=== PATIENT | male | born 1945 | race Caucasian/White ===

== ENCOUNTER 2017-02-25 22:00 | Inpatient (IN) | payer OTHER ==
[2017-02-25 22:15] VITALS: BMI 31.9
--- NOTE | 2017-02-25 22:29 | ED PDOC ---
Arrival/HPI - General Chief Complaint: Chest Pain Time Seen by Provider: 02/25/17 22:03 Historian: Patient, Family - History of Present Illness Narrative History of Present Illness (Text): 02/25/17 22:28 72 year old male, whose past medical history includes TX, CAD, hypertension, tuberculosis, and diabetes, who presents to the Emergency department accompanied by son complaining of chest pain today. Son states patient began complaining of mid-sternal chest pain approximately 25-30 minutes prior to arrival. Son notes patient has not seen his doctor in a while and is non- compliant with medication. Son notes that pt, has had hx. in the past of hemoptysis. Patient denies fever, chills, nausea, vomiting, diarrhea or any other complaints. Time/Duration: 24 hours Quality: Tightness Context: Home Past Medical History - Provider Review Nursing Documentation Reviewed: Yes - Cardiac Hx Hypertension: Yes - Pulmonary Hx Tuberculosis: Yes - Endocrine/Metabolic Hx Diabetes Mellitus Type 2: Yes - Psychiatric Hx Substance Use: No - Surgical History Hx Cataract Extraction: Yes - Anesthesia Hx Anesthesia: Yes Hx Anesthesia Reactions: No Hx Malignant Hyperthermia: No Family/Social History - Physician Review Nursing Documentation Reviewed: Yes Family/Social History: No Known Family HX Smoking Status: Former Smoker Hx Alcohol Use: No Hx Substance Use: No Allergies/Home Meds Allergies/Adverse Reactions: Allergies No Known Allergies Allergy (Verified 02/25/17 22:15) Home Medications: Home Meds Medication Instructions Recorded Confirmed Unobtainable 02/25/17 02/25/17 Review of Systems - Physician Review All systems were reviewed & negative as marked: Yes - Review of Systems Constitutional: Normal. absent: Fevers, Night Sweats Eyes: Normal ENT: Normal Respiratory: SOB, Cough Cardiovascular: Chest Pain Gastrointestinal: Normal. absent: Diarrhea, Nausea, Vomiting Genitourinary Male: Normal. absent: Dysuria, Frequency, Hematuria, Urinary Output Changes Musculoskeletal: Normal. absent: Back Pain, Neck Pain Skin: Normal Neurological: Normal. absent: Headache, Dizziness Physical Exam Vital Signs Reviewed: Yes Vital Signs Temp Pulse Resp BP Pulse Ox 02/26/17 02:44 67 18 98 02/26/17 01:04 64 17 148/79 97 02/26/17 00:54 63 16 166/91 H 98 02/26/17 00:36 153/97 H 02/25/17 22:57 81 177/69 H 02/25/17 22:14 98.5 F 81 16 205/96 H 99 Temperature: Afebrile Blood Pressure: Hypertensive Pulse: Regular Respiratory Rate: Normal Appearance: Positive for: Well-Appearing, Non-Toxic, Comfortable Pain Distress: None Mental Status: Positive for: Alert and Oriented X 3 - Systems Exam Head: Present: Atraumatic, Normocephalic Pupils: Present: PERRL Extroacular Muscles: Present: EOMI Conjunctiva: Present: Normal Mouth: Present: Moist Mucous Membranes Neck: Present: Normal Range of Motion Respiratory/Chest: Present: Good Air Exchange, Rhonchi. No: Respiratory Distress, Accessory Muscle Use Cardiovascular: Present: Regular Rate and Rhythm, Normal S1, S2. No: Murmurs Abdomen: Present: Normal Bowel Sounds. No: Tenderness, Distention, Peritoneal Signs Back: Present: Normal Inspection Upper Extremity: Present: Normal Inspection. No: Cyanosis, Edema Lower Extremity: Present: Other (Chronicvenous stasis to bilateral lower extremities). No: Edema Neurological: Present: GCS=15, CN II-XII Intact, Speech Normal Skin: Present: Warm, Dry, Normal Color. No: Rashes Psychiatric: Present: Alert, Oriented x 3, Normal Insight, Normal Concentration Medical Decision Making ED Course and Treatment: 02/25/17 22:28 Impression: A 72 year old patient presents to the Emergency room for chest pain. Plan: -- EKG -- Chest X ray -- Labs, BNP, cardiac enzymes -- Asprin -- Metoprolol -- Morphine -- Nitroglycerin -- Reassess and disposition Progress Notes: Reviewed EKG, NSR at [address]-segment elevations or depressions, no T-wave inversions, normal intervals. 02/26/17 00:14 Reviewed radiology, CXR shows: The cardiomediastinal silhouette is unremarkable. Increased interstitial markings are identified bilaterally, findings consistent with mild pulmonary vascular congestion. The remainder of the lungs are otherwise clear. No subdiaphragmatic free air or pneumothorax. The trachea is midline. IMPRESSION: Mild pulmonary vascular congestion, without focal infiltrate or effusion. 02/26/17 00:55 Case discussed with medical records technician cushion assembler, who is aware and agrees with plan. 02/26/17 01:[address] Monzon, who is aware and agrees with plan. Accepts pt in to hospitalist service. Pt will go to Telemetry observation for chest pain and CHF. - Lab Interpretations Lab Results: 02/25/17 22:43 02/25/17 22:43 Lab Results 02/25/17 22:43: WBC 8.4, RBC 4.55, Hgb 14.3, Hct 39.9 L, MCV 87.7, MCH 31.4, MCHC 35.8, RDW 12.8, Plt Count 254, MPV 9.8 02/25/17 22:43: Sodium 135, Potassium 4.9, Chloride 101, Carbon Dioxide 25, Anion Gap 14, BUN 26 H, Creatinine 1.0, Est GFR ( Amer) > 60, Est GFR ( Non-Af Amer) > 60, Random Glucose 331 H*, Calcium 9.4, Total Bilirubin 0.7, AST 21, ALT 30, Alkaline Phosphatase 97, Lactate Dehydrogenase 513, Total Creatine Kinase 157, Troponin I 0.04, NT-Pro-B Natriuret Pep 459 H, Total Protein 6.8, Albumin 3.7, Globulin 3.1, Albumin/Globulin Ratio 1.2 02/25/17 22:43: PT 11.3, INR 1.04, APTT 29.0 I have reviewed the lab results: Yes - RAD Interpretation Radiology Orders: 02/25/17 22:29 CHEST PORTABLE [RAD] Stat Water Chaser: Radiologist - EKG Interpretation Interpreted by ED Physician: Yes Type: 12 lead EKG - Medication Orders Current Medication Orders: Aspirin (Aspirin Chewable) 81 mg PO DAILY [facility] Atorvastatin Calcium (Lipitor) 10 mg PO DIN [facility] Famotidine (Pepcid) 20 mg PO 1000,2200 [facility] Insulin Human Lispro (Humalog Low) 0 units SC ACHS PETER PRN Reason: Protocol Lisinopril (Zestril) 10 mg PO DAILY [facility] Ondansetron HCl (Zofran Inj) 4 mg IVP Q6H PRN PRN Reason: Nausea/Vomiting Polyethylene Glycol (Miralax) 17 gm PO DAILY [facility] Discontinued Medications Acetaminophen (Tylenol 325mg Tab) 650 mg PO STAT STA Stop: 02/26/17 05:41 Last Admin: 02/26/17 05:49 Dose: 650 mg Aspirin (Aspirin) 325 mg PO ONCE STA Stop: 02/25/17 22:31 Last Admin: 02/25/17 22:57 Dose: 325 mg Furosemide (Lasix) 40 mg IVP ONCE ONE Stop: 02/26/17 00:21 Last Admin: 02/26/17 00:36 Dose: 40 mg MAR Blood Pressure Document 02/26/17 00:36 HI (Rec: 02/26/17 00:36 [id number]) Blood Pressure Blood Pressure (100/60-150/90) 153/97 IVP Administration Document 02/26/17 00:36 HI (Rec: 02/26/17 00:36 [id number]) Charges for Administration # of IVP Administrations 1 Insulin Human Regular (Humulin R) 5 units SC STAT STA Stop: 02/26/17 00:01 Last Admin: 02/26/17 00:36 Dose: 5 units MAR Blood Glucose Document 02/26/17 00:36 HI (Rec: 02/26/17 00:36 [id number]) Blood Glucose Finger Stick Blood Glucose (70-120) 336 Subcutaneous Administrations Document 02/26/17 00:36 HI (Rec: 02/26/17 00:36 [id number]) Injection Site MAR Injection Site Right Arm Charges for Administration # of Subcutaneous Administrations 1 Metoprolol Tartrate (Lopressor) 25 mg PO ONCE STA Stop: 02/25/17 22:32 Last Admin: 02/25/17 22:57 Dose: 25 mg MAR Pulse and Blood Pressure Document 02/25/17 22:57 HI (Rec: 02/25/17 22:58 [id number]) Pulse Pulse Rate (60-90) 81 Blood Pressure Blood Pressure (100/60-150/90) 177/69 Morphine Sulfate (Morphine) 2 mg IVP STAT STA Stop: 02/25/17 22:31 Last Admin: 02/25/17 22:58 Dose: 2 mg MAR Pain Assessment Document 02/25/17 22:58 HI (Rec: 02/25/17 22:58 [id number]) Pain Reassessment Is this a pain reassessment? No Sleep Is patient sleeping during reassessment? No Presence of Pain Presence of Pain Yes Location Pain Location Body Site Chest IVP Administration Document 02/25/17 22:58 HI (Rec: 02/25/17 22:58 [id number]) Charges for Administration # of IVP Administrations 1 Nitroglycerin (Nitro-Bid 2% Oint) 1 ea TOP ONCE STA Stop: 02/25/17 22:31 Last Admin: 02/25/17 22:57 Dose: 1 ea - Scribe Statement Syeda Martinez under supervision of Joycelyn Zamorano Provider Scribe Attestation: All medical record entries made by the Scribe were at my direction and personally dictated by me. I have reviewed the chart and agree that the record accurately reflects my personal performance of the history, physical exam, medical decision making, and the department course for this patient. I have also personally directed, reviewed, and agree with the discharge instructions and disposition. Disposition/Present on Arrival - Present on Arrival Any Indicators Present on Arrival: No History of DVT/PE: No History of Uncontrolled Diabetes: No Urinary Catheter: No History of Decub. Ulcer: No History Surgical Site Infection Following: None - Disposition Have Diagnosis and Disposition been Completed?: Yes Diagnosis: Chest pain, CHF (congestive heart failure) Disposition: HOSPITALIZED Disposition Time: 00:55 Patient Plan: Observation Patient Problems: Current Active Problems Problem Status Onset CHF (congestive heart failure) Acute Chest pain Acute Condition: STABLE
[2017-02-25] MEDS ORDERED: Morphine 2 mg/ml ISec IVP STA (22:30)
[2017-02-25] MEDS ORDERED: Nitroglycerin 2% Ointment Foilpak UD TOP STA (22:30)
[2017-02-25 22:57] LABS: HEMATOCRIT 39.9 % (42.0-52.0); MEAN CELL VOLUME 87.7 fl (80.0-105.0); MEAN CORPUSCULAR HEMOGLOBIN 31.4 pg (25.0-35.0); MEAN CORPUSCULAR HGB CONC 35.8 g/dl (31.0-37.0); MEAN PLATELET VOLUME 9.8 fl (7.0-11.0); RED CELL DISTRIBUTION WIDTH 12.8 % (11.5-14.5); WHITE BLOOD COUNT 8.4 10^3/ul (4.5-11.0)
[2017-02-25 23:08] LABS: INR 1.04 (0.93-1.08)
[2017-02-25 23:12] LABS: ALB/GLOB RATIO 1.2 (1.1-1.8); ALKALINE PHOSPHATASE 97 U/L (38-126); ALT/SGPT 30 U/L (7-56); AST/SGOT 21 U/L (17-59); BILIRUBIN,TOTAL 0.7 mg/dL (0.2-1.3); BLOOD UREA NITROGEN 26 mg/dL (7-21); CALCIUM 9.4 mg/dL (8.4-10.5); CARBON DIOXIDE 25 mmol/L (21-33); CHLORIDE 101 mmol/L (98-107); GFR AFRICAN-AMERICAN > 60; GLUCOSE,RANDOM 331 mg/dL (70-110); POTASSIUM 4.9 mmol/L (3.6-5.0); SODIUM 135 mmol/L (132-148); TOTAL PROTEIN 6.8 g/dL (5.8-8.3)
[2017-02-25 23:15] LABS: TROPONIN I 0.04 ng/mL
[2017-02-26] MEDS ORDERED: Insulin Regular 1 UNITS/0.01 ML ML SC STA
--- NOTE | 2017-02-26 00:07 | RAD ---
EXAM: XR Chest, 1 View CLINICAL HISTORY: 72 years old, male; Pain and signs and symptoms; Fever; Chest pain; On breathing TECHNIQUE: Frontal view of the chest. COMPARISON: No relevant prior studies available. FINDINGS: The cardiomediastinal silhouette is unremarkable. Increased interstitial markings are identified bilaterally, findings consistent with mild pulmonary vascular congestion. The remainder of the lungs are otherwise clear. No subdiaphragmatic free air or pneumothorax. The trachea is midline. IMPRESSION: Mild pulmonary vascular congestion, without focal infiltrate or effusion.
--- NOTE | 2017-02-26 01:30 | CP.PCM.HP ---
<Rebekah Jackson - Last Filed: 02/26/17 02:09> History of Present Illness - History of Present Illness History of Present Illness: Please note patient is a poor historian. 72 year old male PMHx PR 4 years ago, CAD, HTN, DM2, and TB presents with complaints of chest pain and LLE pain secondary to an open wound. Patient reports chest pain began 25-30minutes prior to arrival to ED. He reported the pain was a 10/10 in intensity non radiating to his jaw and arms bilaterally. Patient also complains of SOB with walking but when asked how many feet he was unable to quantify exactly. He denied any cough at this time but reported that for some months now he has been experiencing hemoptysis once a week. Patient denied any night sweats or weight loss. Patient also admits to nausea but no emesis and complains of chronic constipation reporting he requires milk of magnesia and has a BM every 3 days. Patient also complains of polyuria and nocturia with associated dribbling and hesitancy at times. He denies any dysuria , hematuria, and flank pain. Patient also complaints of unsteady gait, dizziness , lightheadedness when he stands too quickly and frequent falls. He reports numbness, tingling, and bilateral pain in his legs. He denied any fever, chills , headache, sore throat, palpitations, and abdominal pain. Patient was admitted at [facility] 5 years ago for TB for 2 months. Denied any recent travel and sick contacts. PMD: denies PMHx: PR 4 years ago, CAD, HTN, DM2, and TB Family History: multiple family members with DM2 Surgical History: b/l cataract surgery Allergies: NKDA Social History: used to smoke 2ppd since he was 16 years old and quit 7 years ago; denies EtOH and drug use; retired; lives at home with son who is a chief of police Medications: metformin 500mg bid which he receives from a friend Present on Admission - Present on Admission Any Indicators Present on Admission: No Review of Systems - Constitutional Constitutional: As Per HPI, Frequent Falls. absent: Chills, Fever, Headache, Weight Loss - EENT Eyes: As Per HPI. absent: Blurred Vision Ears: As Per HPI, Disequilibrium, Dizziness. absent: Tinnitus Nose/Mouth/Throat: As Per HPI. absent: Sore Throat - Cardiovascular Cardiovascular: As Per HPI, Chest Pain with Activity, Dyspnea on Exertion, Leg Ulcers. absent: Edema, Leg Edema - Respiratory Respiratory: As Per HPI, Hemoptysis, Dyspnea on Exertion. absent: Wheezing - Gastrointestinal Gastrointestinal: As Per HPI, Constipation, Nausea. absent: Abdominal Pain, Diarrhea, Vomiting - Genitourinary Genitourinary: As Per HPI, Nocturia, Urinary Frequency, Urinary Hesitance, Urinary Urgency, Voiding Freq/Small Amts. absent: Dysuria, Hematuria - Musculoskeletal Musculoskeletal: As Per HPI, Numbness, Tingling - Integumentary Integumentary: As Per HPI, Wounds (LLE) - Neurological Neurological: As Per HPI, Disequilibrium, Dizziness, Numbness, Frequent Falls, Tingling - Psychiatric Psychiatric: As Per HPI. absent: Anxiety - Endocrine Endocrine: As Per HPI, Polyuria - Hematologic/Lymphatic Hematologic: As Per HPI. absent: Easy Bleeding, Easy Bruising Past Patient History - Past Social History Smoking Status: Former Smoker - CARDIAC Hx Hypertension: Yes - PULMONARY Hx Tuberculosis: Yes - ENDOCRINE/METABOLIC Hx Diabetes Mellitus Type 2: Yes - PSYCHIATRIC Hx Substance Use: No - SURGICAL HISTORY Hx Cataract Extraction: Yes - ANESTHESIA Hx Anesthesia: Yes Hx Anesthesia Reactions: No Hx Malignant Hyperthermia: No Meds Allergies/Adverse Reactions: Allergies Allergy/AdvReac Type Severity Reaction Status Date / Time No Known Allergies Allergy Verified 02/25/17 22:15 Physical Exam - Constitutional Appears: Non-toxic, No Acute Distress - Head Exam Head Exam: ATRAUMATIC, NORMAL INSPECTION, NORMOCEPHALIC - Eye Exam Eye Exam: EOMI, Normal appearance, PERRL. absent: Conjunctival injection, Scleral icterus Pupil Exam: NORMAL ACCOMODATION - ENT Exam ENT Exam: Mucous Membranes Moist - Neck Exam Neck exam: Positive for: Full Rom, Normal Inspection - Respiratory Exam Respiratory Exam: Clear to Auscultation Bilateral, NORMAL BREATHING PATTERN. absent: Accessory Muscle Use, Rales, Rhonchi, Wheezes, Respiratory Distress - Cardiovascular Exam Cardiovascular Exam: REGULAR RHYTHM, RRR, +S1, +S2. absent: Systolic Murmur - GI/Abdominal Exam GI & Abdominal Exam: Normal Bowel Sounds, Soft. absent: Firm, Guarding, Rigid, Tenderness - Extremities Exam Extremities exam: Negative for: pedal edema Additional comments: Chronicvenous stasis to b/l LE LLE open wound - Back Exam Back exam: NORMAL INSPECTION. absent: rash noted - Neurological Exam Neurological exam: Alert, Oriented x3 - Psychiatric Exam Psychiatric exam: Normal Affect, Normal Mood - Skin Skin Exam: Dry, Warm Results - Vital Signs Recent Vital Signs: Last Vital Signs Temp 98.5 F 02/25/17 22:14 Pulse 64 02/26/17 01:04 Resp 17 02/26/17 01:04 BP 148/79 02/26/17 01:04 Pulse Ox 97 02/26/17 01:04 - Labs Result Diagrams: 02/25/17 22:43 02/25/17 22:43 Labs: Laboratory Results - last 24 hr 02/25/17 02/25/17 02/25/17 22:43 22:43 22:43 WBC 8.4 RBC 4.55 Hgb 14.3 Hct 39.9 L MCV 87.7 MCH 31.4 MCHC 35.8 RDW 12.8 Plt Count 254 MPV 9.8 PT 11.3 INR 1.04 APTT 29.0 Sodium 135 Potassium 4.9 Chloride 101 Carbon Dioxide 25 Anion Gap 14 BUN 26 H Creatinine 1.0 Est GFR ( Amer) > 60 Est GFR (Non-Af Amer) > 60 Random Glucose 331 H* Calcium 9.4 Total Bilirubin 0.7 AST 21 ALT 30 Alkaline Phosphatase 97 Lactate Dehydrogenase 513 Total Creatine Kinase 157 Troponin I 0.04 NT-Pro-B Natriuret Pep 459 H Total Protein 6.8 Albumin 3.7 Globulin 3.1 Albumin/Globulin Ratio 1.2 Assessment & Plan - Assessment and Plan (Free Text) Assessment: 72 year old male PMHx PR 4 years ago, CAD, HTN, DM2, and TB presents with complaints of chest pain and LLE pain secondary to an open wound. Plan: Chest pain r/o ACS - first troponin and EKG unremarkable f/u troponin and EKG x 2 - patient has hx of PR - ASA 81mg po qdaily - Lipitor 10mg po qhs - Lisinopril 10mg po qdaily - f/u lipid panel - f/u thyroid panel - f/u HgbA1c - f/u Echo Uncontrolled Hypertension - patient presented with BP 205/96 - Lisinopril 10mg po qdaily - Monitor Hemoptysis - patient has hx of TB - airborne isolation - f/u TB studies - f/u blood culture - ID consult: Dr. Antonio JASON wound - non healing wound likely secondary to uncontrolled DM - Podiatry consult: Dr. Ley - daily wound care Hx of DM2 - f/u HgbA1c - Accucheck - RISS low Unsteady gait - f/u orthostatics - f/u PT/OT reccs Urinary complaints - patient complaining of urinary hesitancy, dribbling, nocturia, and polyuria - f/u PSA - f/u UA and urine culture Chronic constipation - Miralax daily - Zofran 4mg ivp q6 prn nausea Diet: heart healthy moderate consistent carb GI ppx: Pepcid 20mg po bid DVT ppx: VTE ppx on hold secondary to hemoptysis and SCDs c/i secondary to LLE wound Precautions: fall risk Discussed with Dr. Nicolás Jackson PGY2 <Lydia Monzon - Last Filed: 02/26/17 03:18> Results - Vital Signs Recent Vital Signs: Last Vital Signs Temp 98.5 F 02/25/17 22:14 Pulse 67 02/26/17 02:44 Resp 18 02/26/17 02:44 BP 148/79 02/26/17 01:04 Pulse Ox 98 02/26/17 02:44 - Labs Result Diagrams: 02/25/17 22:43 02/25/17 22:43 Labs: Laboratory Results - last 24 hr 02/26/17 02:40 POC Glucose (mg/dL) 232 H Attending/Attestation - Attestation I have personally seen and examined this patient.: Yes I have fully participated in the care of the patient.: Yes I have reviewed all pertinent clinical information: Yes Notes (Text): 02/26/17 03:17 Agree with documentation and orders placed.
[2017-02-26 06:35] LABS: PH,URINE 5.5 (4.7-8.0); URINE BILIRUBIN NEGATIVE (NEGATIVE); URINE BLOOD TRACE-INTACT (NEGATIVE); URINE GLUCOSE (UA) 250 mg/dL (NEGATIVE); URINE KETONE NEGATIVE (NEGATIVE); URINE LEUKOCYTE ESTERASE NEGATIVE Leu/uL (NEGATIVE); URINE PROTEIN 100 mg/dL (<30 mg/dL); URINE UROBILINOGEN 0.2 E.U./dL (<1 E.U./dL)
[2017-02-26 06:39] LABS: BASO # 0.03 K/mm3 (0.0-2.0); BASO % 0.3 % (0.0-3.0); EOS # 0.1 (0.0-0.7); EOS % 1.5 % (1.5-5.0); GRAN # 4.77 (1.4-6.5); GRAN % 54.1 % (50.0-68.0); HEMATOCRIT 39.8 % (42.0-52.0); LYMPH # 3.1 (1.2-3.4); LYMPH % 35.6 % (22.0-35.0); MEAN CELL VOLUME 88.2 fl (80.0-105.0); MEAN CORPUSCULAR HEMOGLOBIN 30.8 pg (25.0-35.0); MEAN CORPUSCULAR HGB CONC 34.9 g/dl (31.0-37.0); MEAN PLATELET VOLUME 9.9 fl (7.0-11.0); MONO # 0.8 (0.1-0.6); MONO % 8.5 % (1.0-6.0); WHITE BLOOD COUNT 8.8 10^3/ul (4.5-11.0)
[2017-02-26 06:42] LABS: URINE APPEARANCE CLEAR (CLEAR); URINE COLOR YELLOW (YELLOW)
[2017-02-26 06:56] LABS: URINE EPITHELIAL CELLS 0 - 2 /hpf (0-5); URINE RBC 0 - 2 /hpf (0-2); URINE WBC 0 - 2 /hpf (0-6)
[2017-02-26 07:04] LABS: ALB/GLOB RATIO 1.2 (1.1-1.8); ALKALINE PHOSPHATASE 98 U/L (38-126); ALT/SGPT 30 U/L (7-56); AST/SGOT 21 U/L (17-59); BILIRUBIN,TOTAL 0.7 mg/dL (0.2-1.3); BLOOD UREA NITROGEN 26 mg/dL (7-21); CALCIUM 9.4 mg/dL (8.4-10.5); CARBON DIOXIDE 30 mmol/L (21-33); CHLORIDE 101 mmol/L (98-107); CHOLESTEROL 208 mg/dL (130-200); GFR AFRICAN-AMERICAN > 60; GLUCOSE,RANDOM 194 mg/dL (70-110); MAGNESIUM 1.8 mg/dL (1.7-2.2); POTASSIUM 4.2 mmol/L (3.6-5.0); SODIUM 137 mmol/L (132-148)
[2017-02-26 07:15] LABS: TROPONIN I 0.05 ng/mL
[2017-02-26 07:22] LABS: T4 7.6 ug/dL (5.5-11.0)
[2017-02-26 07:35] LABS: PROSTATE SPECIFIC ANTIGEN 9.1 ng/mL (0.00-2.5); THYROID STIMULATING HORMONE 2.39 mIU/mL (0.46-4.68)
[2017-02-26] MEDS: Insulin Lispro (humaLOG) LOW Coverage SC SCH ×4 (08:34→22:04)
--- NOTE | 2017-02-26 09:56 | CP.PCM.CON ---
<SaleemHarrisongeronimodorys - Last Filed: 02/26/17 13:44> History of Present Illness - History of Present Illness History of Present Illness: 72 y/o male with PMHx of DE 4 years ago, CAD, HTN, DM2, and TB seen and evaluated at bedside with Dr. Ley for chronic left anterior leg ulcer. Patient states that he has had the ulcer for a very long time. Patient states that he has had hard time healing the wound for a while. Patient denies of any recent F/N/V/C/SOB/CP today. Patient states that his legs have been discolored for a very long time. Patient denies of any other pedal complains at this time. PMHx: DE 4 years ago, CAD, HTN, DM2, and TB Surgical History: b/l cataract surgery Allergies: NKDA Social History: used to smoke 2ppd since he was 16 years old and quit 7 years ago; denies EtOH and drug use; retired; lives at home with son who is a police clerk Review of Systems - Constitutional Constitutional: As Per HPI Past Patient History - Past Social History Smoking Status: Former Smoker - CARDIAC Hx Hypertension: Yes - PULMONARY Hx Tuberculosis: Yes - NEUROLOGICAL Hx Neurological Disorder: No - HEENT Hx Cataracts: Yes - RENAL Hx Chronic Kidney Disease: No - ENDOCRINE/METABOLIC Hx Diabetes Mellitus Type 2: Yes - HEMATOLOGICAL/ONCOLOGICAL Hx Blood Disorders: No - INTEGUMENTARY Hx Dermatological Problems: No - MUSCULOSKELETAL/RHEUMATOLOGICAL Hx Falls: Yes - GASTROINTESTINAL Hx Gastrointestinal Disorders: No - GENITOURINARY/GYNECOLOGICAL Hx Genitourinary Disorders: No - PSYCHIATRIC Hx Substance Use: No - SURGICAL HISTORY Hx Cataract Extraction: Yes - ANESTHESIA Hx Anesthesia: Yes Hx Anesthesia Reactions: No Hx Malignant Hyperthermia: No Meds Allergies/Adverse Reactions: Allergies Allergy/AdvReac Type Severity Reaction Status Date / Time No Known Allergies Allergy Verified 02/25/17 22:15 - Medications Medications: Current Medications Aspirin (Aspirin Chewable) 81 mg PO DAILY [facility] Atorvastatin Calcium (Lipitor) 10 mg PO DIN [facility] Famotidine (Pepcid) 20 mg PO 1000,2200 [facility] Insulin Human Lispro (Humalog Low) 0 units SC ACHS [facility] PRN Reason: Protocol Last Admin: 02/26/17 08:34 Dose: 2 units Lisinopril (Zestril) 10 mg PO DAILY [facility] Ondansetron HCl (Zofran Inj) 4 mg IVP Q6H PRN PRN Reason: Nausea/Vomiting Polyethylene Glycol (Miralax) 17 gm PO DAILY [facility] Physical Exam - Constitutional Appears: Well, Non-toxic, No Acute Distress - Head Exam Head Exam: ATRAUMATIC - Extremities Exam Additional comments: Bilateral LE exam: VASC: DP/PT pulses are palpable 1/4 b/l, ENTER[employer]CH[employer]ECT: < 3 sec to all digits, TG: warm to cool from proximal to distal, no pitting or non-pitting edema noted DERM: Diffuse discoloration noted on the distal bilateral LE, fibrotic wound measuring approx. 1.5cm x 0.8 cm on the anterior left leg, no active drainage, no purulence, no tunneling, no undermining, no probe to bone, no foul odor, wound bed is 100% fibrotic with no surrounding hyperkeratosis, no clinical suspicion of active infection NEURO: Protective sensation grossly diminished b/l ORTHO: no pain on palpation of the wound site - Neurological Exam Neurological exam: Alert, Oriented x3 - Psychiatric Exam Psychiatric exam: Normal Affect, Normal Mood Results - Vital Signs Recent Vital Signs: Last Vital Signs Temp 98.2 F 02/26/17 07:08 Pulse 73 02/26/17 07:08 Resp 20 02/26/17 07:08 BP 146/85 02/26/17 07:08 Pulse Ox 100 02/26/17 07:08 - Labs Result Diagrams: 02/26/17 05:00 02/26/17 05:00 Labs: Laboratory Results - last 24 hr 02/26/17 02/26/17 02/26/17 02:40 05:00 05:00 WBC 8.8 RBC 4.51 Hgb 13.9 L Hct 39.8 L MCV 88.2 MCH 30.8 MCHC 34.9 RDW 13.0 Plt Count 291 MPV 9.9 Gran % 54.1 Lymph % (Auto) 35.6 H Maury % (Auto) 8.5 H Eos % (Auto) 1.5 Baso % (Auto) 0.3 Gran # 4.77 Lymph # 3.1 Maury # 0.8 H Eos # 0.1 Baso # 0.03 Sodium 137 Potassium 4.2 Chloride 101 Carbon Dioxide 30 Anion Gap 10 BUN 26 H Creatinine 1.0 Est GFR ( Amer) > 60 Est GFR (Non-Af Amer) > 60 POC Glucose (mg/dL) 232 H Random Glucose 194 H Calcium 9.4 Phosphorus 4.0 Magnesium 1.8 Total Bilirubin 0.7 AST 21 ALT 30 Alkaline Phosphatase 98 Troponin I 0.05 D Total Protein 7.0 Albumin 3.7 Globulin 3.2 Albumin/Globulin Ratio 1.2 Triglycerides 219 H Cholesterol 208 H LDL Cholesterol Direct 119 HDL Cholesterol 32 Prostate Specific Ag Thyroxine (T4) TSH 3rd Generation Urine Color Urine Appearance Urine pH Ur Specific [place] Urine Protein Urine Glucose (UA) Urine Ketones Urine Blood Urine Nitrate Urine Bilirubin Urine Urobilinogen Ur Leukocyte Esterase Urine RBC Urine WBC Ur Epithelial Cells Hyaline Casts 02/26/17 02/26/17 05:00 06:24 WBC RBC Hgb Hct MCV MCH MCHC RDW Plt Count MPV Gran % Lymph % (Auto) Maury % (Auto) Eos % (Auto) Baso % (Auto) Gran # Lymph # Maury # Eos # Baso # Sodium Potassium Chloride Carbon Dioxide Anion Gap BUN Creatinine Est GFR ( Amer) Est GFR (Non-Af Amer) POC Glucose (mg/dL) Random Glucose Calcium Phosphorus Magnesium Total Bilirubin AST ALT Alkaline Phosphatase Troponin I Total Protein Albumin Globulin Albumin/Globulin Ratio Triglycerides Cholesterol LDL Cholesterol Direct HDL Cholesterol Prostate Specific Ag 9.1 H Thyroxine (T4) 7.6 TSH 3rd Generation 2.39 Urine Color Yellow Urine Appearance Clear Urine pH 5.5 Ur Specific [place] 1.025 Urine Protein 100 H Urine Glucose (UA) 250 H Urine Ketones Negative Urine Blood Trace-intact H Urine Nitrate Negative Urine Bilirubin Negative Urine Urobilinogen 0.2 Ur Leukocyte Esterase Negative Urine RBC 0 - 2 Urine WBC 0 - 2 Ur Epithelial Cells 0 - 2 Hyaline Casts 0 - 2 Assessment & Plan - Assessment and Plan (Free Text) Assessment: 72 y/o male seen and evaluated at bedside for chronic non-healing left leg ulcer secondary to DM and hyperpigmented legs bilaterally Plan: Patient seen and evaluated at bedside with Dr. Ley Labs, vitals and charts reviewed - WBC @ 8.8, afebrile Aseptic debridement of the nails using sterile nippers Hydrocolloid dressing applied to the anterior leg ID on board Podiatry to follow patient while in house Thank you for the podiatry consult - Date & Time Date: 02/26/17 Time: 10:24 <Olya Ley - Last Filed: 03/02/17 15:28> Results - Vital Signs Recent Vital Signs: Last Vital Signs Temp 98.8 F 02/27/17 16:00 Pulse 76 02/27/17 16:00 Resp 18 02/27/17 16:00 BP 152/62 H 02/27/17 16:00 Pulse Ox 99 02/27/17 16:00 - Labs Result Diagrams: 02/26/17 05:00 02/26/17 05:00 Attending/Attestation - Attestation I have personally seen and examined this patient.: Yes I have fully participated in the care of the patient.: Yes I have reviewed all pertinent clinical information: Yes
[2017-02-26] MEDS: POLYETHYLENE GLYCOL 3350 17 GM/Dose PACKET PO SCH (10:02)
[2017-02-26] MEDS: Enoxaparin 40 mg Syringe SC SCH (12:36)
--- NOTE | 2017-02-26 12:57 | CARD ---
APPROVED REPORT EXAM: Two-dimensional and M-mode echocardiogram with Doppler and color Doppler. INDICATION Chest Pain 2D DIMENSIONS Left Atrium (2D)4.3 (1.6-4.0cm)IVSd1.4 (0.7-1.1cm) LVDd5.0 (3.9-5.9cm)PWd1.4 (0.7-1.1cm) LVDs3.6 (2.5-4.0cm)FS (%) 28.5 % LVEF (%)54.8 (>50%) M-Mode DIMENSIONS Aortic Root2.90 (2.2-3.7cm)Aortic Cusp Exc.1.20 (1.5-2.0cm) Aortic Valve AoV Peak Wttrgrxu356.0cm/Mary Ellen Peak GR.10mmHg Mitral Valve MV E Huzlauvf40.2cm/sMV A Ddqayjoe71.6cm/sE/A ratio0.8 TDI E/Lateral E'0.0E/Medial E'0.0 Tricuspid Valve TR Peak [id number]/sRAP [id number] Peak Gr.8mmHg [id number] LEFT VENTRICLE The left ventricle is normal size. There is mild concentric left ventricular hypertrophy. The left ventricular function is normal. The left ventricular ejection fraction is within the normal range. There is normal LV segmental wall motion. Transmitral Doppler flow pattern is Grade I-abnormal relaxation pattern. RIGHT VENTRICLE The right ventricle is normal size. There is normal right ventricular wall thickness. The right ventricular systolic function is normal. ATRIA The left atrium is borderline dilated. The right atrium size is normal. AORTIC VALVE The aortic valve is mildly thickened. No aortic regurgitation is present. There is no aortic valvular stenosis. MITRAL VALVE The mitral valve is normal in structure. There is no mitral valve regurgitation noted. TRICUSPID VALVE The tricuspid valve is normal in structure. There is no tricuspid valve regurgitation noted. GREAT VESSELS The aortic root is normal in size. The IVC is normal in size and collapses >50% with inspiration. PERICARDIAL EFFUSION There is a trace loculated anterior pericardial effusion. <Conclusion> The left ventricle is normal size. There is mild concentric left ventricular hypertrophy. The left ventricular function is normal. The left ventricular ejection fraction is within the normal range. There is normal LV segmental wall motion. Transmitral Doppler flow pattern is Grade I-abnormal relaxation pattern.
[2017-02-26] MEDS ORDERED: Magnesium Hydroxide Susp 30 ml UD PO PRN (13:18)
--- NOTE | 2017-02-26 14:19 | CP.PCM.PCO ---
Addendum Addendum: 02/26/17 14:13 Teofilo (patient's son was contacted at [phone]) and he stated that pt had NE >10 yrs ago and TB around 5 years ago but was treated @ [facility] and was followed up at [facility] ([address], ) in [place]. Per son, the pt fell 4 months ago and that was when he got the ulcer. Pt currently lives in son's basement. He stated that he received treatment at [facility] in the past. He also states that the patient was complaining of some chest tightness yesterday which is why he brought him into the ED. When patient was seen, he was complaining of the ulcer in his LLE (anterior jamison ) and when asked more, he also complained of chest tightness and abdominal fullness/constipation. Sis from [facility] was contacted at the above number and provided this information: patient presented w/ hemoptysis, sputum culture showed +TB, pt was provided with treatment and followup cultures were negative ( 11/2012). Treatment with Rifampin, INH, Pyrazinamide and Ethambutol were started @ [facility] on 03/12/2011 and continued as outpatient in April 2011. Pyrazinamide and Ethambutol were discontinued in the end of April 2011 and Rifampin and INH were continued until 12/09/2011. Confirmatory cultures were negative x3 in 2012. Consent for release of medical records from [facility] was signed and will be faxed today.
[2017-02-26] MEDS: levoFLOXacin 500 mg in D5W 500 MG/100 ML BAG IVPB SCH (15:46)
--- NOTE | 2017-02-26 20:37 | CON ---
DATE: CARDIOLOGY CONSULT REASON FOR CONSULTATION: Chest pain. HISTORY OF PRESENT ILLNESS: History was obtained by a japanese interpreter. The patient is a 72-year-old male, who has a history of coronary artery disease, hypertension, history of pulmonary TB that was treated some few years ago, presented because of chest discomfort in the midsternal area lasted approximately 25-30 minutes prior to his arrival to the emergency room. The patient has no recurrence of chest discomfort. The patient denies any history of heart attack in the past. The patient denies any productive cough or hemoptysis. He denies any fever or chills. He denied any recent loss of weight. PAST MEDICAL HISTORY: Hypertension, diabetes mellitus, pulmonary TB, cataract extraction. SOCIAL HISTORY: Former smoker. PHYSICAL EXAMINATION: GENERAL: The patient is an elderly male who does not appear to be in acute distress. VITAL SIGNS: Blood pressure 146/85, heart rate 73, temperature 98.2, and respirations 20. HEENT: Normocephalic. CHEST: Bilateral scattered rhonchi. HEART: S1 and S2, regular. ABDOMEN: Soft. EXTREMITIES: 1+ pitting edema. LABORATORY DATA: Hemoglobin and hematocrit 13.9 and 39.8. White count and platelet count are within normal limits. Today's SMA-7 is within normal limits except for glucose of 194 and BUN of 26. Two sets of troponins are 0.04 and 0.05. Triglyceride is elevated 219. LDL, cholesterol is elevated at 208. TSH is within normal limit. PT, PTT and INR are within normal limit. EKG revealed normal sinus rhythm. Chest x-ray revealed bilateral rhonchi and alveolar infiltrate more prominent in both hilar areas. ASSESSMENT: 1. Chest pain, rule out myocardial infarction. 2. History of pulmonary tuberculosis, rule out reactivation. 3. Uncontrolled diabetes mellitus. 4. Hypertension and hyperlipidemia. CONDITIONS: Continue aspirin 81 mg once daily, Lipitor 10 mg once a day, Zestril 10 mg once a day, start subcutaneous Lovenox at 40 mg once a day. I will review the echocardiographic study performed today. Moe Robb MD
--- NOTE | 2017-02-26 22:09 | CARD ---
APPROVED REPORT EKG Measurement Heart [id number] <Conclusion> Normal sinus rhythm Normal ECG
--- NOTE | 2017-02-26 23:30 | CP.PCM.CON ---
History of Present Illness - History of Present Illness History of Present Illness: Infectious Disease Consultation: February 26, 2017 72 yo male with history of tuberculosis over 5 years ago who had treatment initiated at [facility] at that time. He was followed through by the [facility]. Patient himself is a very poor historian. Notes reviewed at [facility] verifying initiation of treatment in February 2011. The patient was initially brought to [facility] for chest pain and LLE pain. PMHx: OR 4 years ago, CAD, HTN, DM, TB treated 4 years ago (active disease) PSHx: bilateral cataract surgery Allergies: NKDA Social Hx: Ex-smoker 2ppd for over 50 years, No EtOH, No illicit drug use. Retired police clerk. Active Medications Acetaminophen (Tylenol 325mg Tab) 650 mg PO Q6H PRN PRN Reason: Headache Aspirin (Aspirin Chewable) 81 mg PO DAILY [facility] Last Admin: 02/26/17 10:01 Dose: 81 mg Atorvastatin Calcium (Lipitor) 10 mg PO DIN [facility] Last Admin: 02/26/17 17:17 Dose: 10 mg Docusate Sodium (Colace) 100 mg PO BID [facility] Last Admin: 02/26/17 17:17 Dose: 100 mg Enoxaparin Sodium (Lovenox) 40 mg SC DAILY [facility] PRN Reason: Protocol Last Admin: 02/26/17 12:36 Dose: 40 mg Famotidine (Pepcid) 20 mg PO 1000,2200 [facility] Last Admin: 02/26/17 22:07 Dose: 20 mg Levofloxacin/Dextrose (Levaquin 500mg) 500 mg in 100 mls @ 100 mls/hr IVPB DAILY [facility] Last Admin: 02/26/17 15:46 Dose: 100 mls/hr Insulin Human Lispro (Humalog Low) 0 units SC ACHS [facility] PRN Reason: Protocol Last Admin: 02/26/17 22:04 Dose: Not Given Lisinopril (Zestril) 10 mg PO DAILY [facility] Last Admin: 02/26/17 10:01 Dose: 10 mg Magnesium Hydroxide (Milk Of Magnesia) 30 ml PO DAILY PRN PRN Reason: Constipation Last Admin: 02/26/17 13:36 Dose: 30 ml Ondansetron HCl (Zofran Inj) 4 mg IVP Q6H PRN PRN Reason: Nausea/Vomiting Polyethylene Glycol (Miralax) 17 gm PO DAILY [facility] Last Admin: 02/26/17 10:02 Dose: 17 gm Family Hx: DM in multiple family members ROS: Chest pain and lower left leg pain. Radiation of chest pain to jaw and bilateral arms. No abdominal pain, melena, hematuria, hematemesis, hematochezia, depression, anxiety, diarrhea, SOB, cough Past Patient History - Past Social History Smoking Status: Former Smoker - CARDIAC Hx Hypertension: Yes - PULMONARY Hx Tuberculosis: Yes - NEUROLOGICAL Hx Neurological Disorder: No - HEENT Hx Cataracts: Yes - RENAL Hx Chronic Kidney Disease: No - ENDOCRINE/METABOLIC Hx Diabetes Mellitus Type 2: Yes - HEMATOLOGICAL/ONCOLOGICAL Hx Blood Disorders: No - INTEGUMENTARY Hx Dermatological Problems: No - MUSCULOSKELETAL/RHEUMATOLOGICAL Hx Falls: Yes - GASTROINTESTINAL Hx Gastrointestinal Disorders: No - GENITOURINARY/GYNECOLOGICAL Hx Genitourinary Disorders: No - PSYCHIATRIC Hx Substance Use: No - SURGICAL HISTORY Hx Cataract Extraction: Yes - ANESTHESIA Hx Anesthesia: Yes Hx Anesthesia Reactions: No Hx Malignant Hyperthermia: No Meds Allergies/Adverse Reactions: Allergies Allergy/AdvReac Type Severity Reaction Status Date / Time No Known Allergies Allergy Verified 02/25/17 22:15 - Medications Medications: Current Medications Acetaminophen (Tylenol 325mg Tab) 650 mg PO Q6H PRN PRN Reason: Headache Aspirin (Aspirin Chewable) 81 mg PO DAILY [facility] Last Admin: 02/26/17 10:01 Dose: 81 mg Atorvastatin Calcium (Lipitor) 10 mg PO DIN [facility] Last Admin: 02/26/17 17:17 Dose: 10 mg Docusate Sodium (Colace) 100 mg PO BID [facility] Last Admin: 02/26/17 17:17 Dose: 100 mg Enoxaparin Sodium (Lovenox) 40 mg SC DAILY [facility] PRN Reason: Protocol Last Admin: 02/26/17 12:36 Dose: 40 mg Famotidine (Pepcid) 20 mg PO 1000,2200 [facility] Last Admin: 02/26/17 22:07 Dose: 20 mg Levofloxacin/Dextrose (Levaquin 500mg) 500 mg in 100 mls @ 100 mls/hr IVPB DAILY [facility] Last Admin: 02/26/17 15:46 Dose: 100 mls/hr Insulin Human Lispro (Humalog Low) 0 units SC ACHS [facility] PRN Reason: Protocol Last Admin: 02/26/17 22:04 Dose: Not Given Lisinopril (Zestril) 10 mg PO DAILY [facility] Last Admin: 02/26/17 10:01 Dose: 10 mg Magnesium Hydroxide (Milk Of Magnesia) 30 ml PO DAILY PRN PRN Reason: Constipation Last Admin: 02/26/17 13:36 Dose: 30 ml Ondansetron HCl (Zofran Inj) 4 mg IVP Q6H PRN PRN Reason: Nausea/Vomiting Polyethylene Glycol (Miralax) 17 gm PO DAILY [facility] Last Admin: 02/26/17 10:02 Dose: 17 gm Physical Exam - Constitutional Appears: Non-toxic, No Acute Distress, Chronically Ill - Head Exam Head Exam: ATRAUMATIC, NORMOCEPHALIC - Eye Exam Eye Exam: EOMI, PERRL Pupil Exam: NORMAL ACCOMODATION, PERRL - ENT Exam ENT Exam: Mucous Membranes Moist, Normal External Ear Exam, TM's Normal Bilaterally - Neck Exam Neck exam: Positive for: Full Rom, Normal Inspection - Respiratory Exam Respiratory Exam: Clear to Auscultation Bilateral, NORMAL BREATHING PATTERN. absent: Rales, Rhonchi, Wheezes - Cardiovascular Exam Cardiovascular Exam: REGULAR RHYTHM, RRR, +S1, +S2 - GI/Abdominal Exam GI & Abdominal Exam: Normal Bowel Sounds, Soft. absent: Distended, Tenderness - Extremities Exam Additional comments: Chronic venous stasis of the legs bilaterally. Anterior left leg ulceration with fibrosis. - Neurological Exam Neurological exam: Alert, CN II-XII Intact, Oriented x3 - Psychiatric Exam Psychiatric exam: Normal Affect, Normal Mood - Skin Skin Exam: Intact, Normal Color Results - Vital Signs Recent Vital Signs: Last Vital Signs Temp 98.9 F 02/26/17 21:30 Pulse 80 02/26/17 21:30 Resp 20 02/26/17 21:30 BP 168/89 H 02/26/17 21:30 Pulse Ox 97 02/26/17 21:30 - Labs Result Diagrams: 02/26/17 05:00 02/26/17 05:00 Labs: Laboratory Results - last 24 hr 02/26/17 02/26/17 02/26/17 02:40 05:00 05:00 WBC 8.8 RBC 4.51 Hgb 13.9 L Hct 39.8 L MCV 88.2 MCH 30.8 MCHC 34.9 RDW 13.0 Plt Count 291 MPV 9.9 Gran % 54.1 Lymph % (Auto) 35.6 H [facility] % (Auto) 8.5 H Eos % (Auto) 1.5 Baso % (Auto) 0.3 Gran # 4.77 Lymph # 3.1 [facility] # 0.8 H Eos # 0.1 Baso # 0.03 Sodium 137 Potassium 4.2 Chloride 101 Carbon Dioxide 30 Anion Gap 10 BUN 26 H Creatinine 1.0 Est GFR ( Amer) > 60 Est GFR (Non-Af Amer) > 60 POC Glucose (mg/dL) 232 H Random Glucose 194 H Hemoglobin A1c Calcium 9.4 Phosphorus 4.0 Magnesium 1.8 Total Bilirubin 0.7 AST 21 ALT 30 Alkaline Phosphatase 98 Troponin I 0.05 D Total Protein 7.0 Albumin 3.7 Globulin 3.2 Albumin/Globulin Ratio 1.2 Triglycerides 219 H Cholesterol 208 H LDL Cholesterol Direct 119 HDL Cholesterol 32 Prostate Specific Ag Thyroxine (T4) TSH 3rd Generation Urine Color Urine Appearance Urine pH Ur Specific Bascom Urine Protein Urine Glucose (UA) Urine Ketones Urine Blood Urine Nitrate Urine Bilirubin Urine Urobilinogen Ur Leukocyte Esterase Urine RBC Urine WBC Ur Epithelial Cells Hyaline Casts 02/26/17 02/26/17 02/26/17 05:00 05:00 06:24 WBC RBC Hgb Hct MCV MCH MCHC RDW Plt Count MPV Gran % Lymph % (Auto) [facility] % (Auto) Eos % (Auto) Baso % (Auto) Gran # Lymph # [facility] # Eos # Baso # Sodium Potassium Chloride Carbon Dioxide Anion Gap BUN Creatinine Est GFR ( Amer) Est GFR (Non-Af Amer) POC Glucose (mg/dL) Random Glucose Hemoglobin A1c 12.4 H Calcium Phosphorus Magnesium Total Bilirubin AST ALT Alkaline Phosphatase Troponin I Total Protein Albumin Globulin Albumin/Globulin Ratio Triglycerides Cholesterol LDL Cholesterol Direct HDL Cholesterol Prostate Specific Ag 9.1 H Thyroxine (T4) 7.6 TSH 3rd Generation 2.39 Urine Color Yellow Urine Appearance Clear Urine pH 5.5 Ur Specific Bascom 1.025 Urine Protein 100 H Urine Glucose (UA) 250 H Urine Ketones Negative Urine Blood Trace-intact H Urine Nitrate Negative Urine Bilirubin Negative Urine Urobilinogen 0.2 Ur Leukocyte Esterase Negative Urine RBC 0 - 2 Urine WBC 0 - 2 Ur Epithelial Cells 0 - 2 Hyaline Casts 0 - 2 02/26/17 02/26/17 07:47 11:28 WBC RBC Hgb Hct MCV MCH MCHC RDW Plt Count MPV Gran % Lymph % (Auto) [facility] % (Auto) Eos % (Auto) Baso % (Auto) Gran # Lymph # [facility] # Eos # Baso # Sodium Potassium Chloride Carbon Dioxide Anion Gap BUN Creatinine Est GFR ( Amer) Est GFR (Non-Af Amer) POC Glucose (mg/dL) 215 H 310 H Random Glucose Hemoglobin A1c Calcium Phosphorus Magnesium Total Bilirubin AST ALT Alkaline Phosphatase Troponin I Total Protein Albumin Globulin Albumin/Globulin Ratio Triglycerides Cholesterol LDL Cholesterol Direct HDL Cholesterol Prostate Specific Ag Thyroxine (T4) TSH 3rd Generation Urine Color Urine Appearance Urine pH Ur Specific Bascom Urine Protein Urine Glucose (UA) Urine Ketones Urine Blood Urine Nitrate Urine Bilirubin Urine Urobilinogen Ur Leukocyte Esterase Urine RBC Urine WBC Ur Epithelial Cells Hyaline Casts Assessment & Plan - Assessment and Plan (Free Text) Assessment: 72 yo male with history of active TB who completed treatment about 5 years ago. The patient has a non-healing left leg ulceration with sign of chronic venous stasis. Noted that the patient is on Levaquin for antibiotic treatment. No need for further TB treatment at this time. Noted hemoptysis was part of the presenting complaints. Chest X-ray did not show infiltrate. Obtain sputum cultures. No need for Quantiferon or PPD as the patient has a known history of active TB with treatment. Local wound care as per podiatry. More likely Pharyngitis. Await sputum cultures. Can check for Acid-Fast stains of the sputum to r/o out TB but unlikely diagnosis. Thank you for allowing me to participate in the care of the patient, we will follow with you.
[2017-02-27] MEDS: Insulin Lispro (humaLOG) LOW Coverage SC SCH ×3 (09:10→17:49)
[2017-02-27] MEDS: levoFLOXacin 500 mg in D5W 500 MG/100 ML BAG IVPB SCH (09:59)
[2017-02-27] MEDS: POLYETHYLENE GLYCOL 3350 17 GM/Dose PACKET PO SCH ×2 (10:00→17:02)
[2017-02-27] MEDS: Enoxaparin 40 mg Syringe SC SCH (10:00)
--- NOTE | 2017-02-27 13:49 | CP.PCM.PN ---
<Mikey Austin - Last Filed: 02/27/17 13:46> Subjective - Date & Time of Evaluation Date of Evaluation: 02/27/17 Time of Evaluation: 10:46 - Subjective Subjective: patient was seen and examined bedside. it was explained to him that his cardiac workup has been negative so far, and he stated that he was feeling much better than the day prior. he denies hemoptysis, cough, shortness of breath, chest pain , weakness, abdominal pain, fevers/chills, n/v/d, constipation. Objective - Vital Signs/Intake and Output Vital Signs (last 24 hours): Temp Pulse Resp BP Pulse Ox 99.2 F 74 20 138/81 98 02/27/17 06:00 02/27/17 09:59 02/27/17 06:00 02/27/17 09:59 02/27/17 06:00 Intake and Output: 02/27/17 02/27/17 06:59 18:59 Intake Total 120 Balance 120 - Medications Medications: Current Medications Acetaminophen (Tylenol 325mg Tab) 650 mg PO Q6H PRN PRN Reason: Headache Aspirin (Aspirin Chewable) 81 mg PO DAILY [facility] Last Admin: 02/27/17 09:58 Dose: 81 mg Atorvastatin Calcium (Lipitor) 10 mg PO DIN [facility] Last Admin: 02/26/17 17:17 Dose: 10 mg Docusate Sodium (Colace) 100 mg PO BID [facility] Last Admin: 02/27/17 09:59 Dose: 100 mg Enoxaparin Sodium (Lovenox) 40 mg SC DAILY [facility] PRN Reason: Protocol Last Admin: 02/27/17 10:00 Dose: 40 mg Famotidine (Pepcid) 20 mg PO 1000,2200 [facility] Last Admin: 02/27/17 09:58 Dose: 20 mg Levofloxacin/Dextrose (Levaquin 500mg) 500 mg in 100 mls @ 100 mls/hr IVPB DAILY [facility] Last Admin: 02/27/17 09:59 Dose: 100 mls/hr Insulin Human Lispro (Humalog Low) 0 units SC ACHS [facility] PRN Reason: Protocol Last Admin: 02/27/17 12:56 Dose: 2 units Lisinopril (Zestril) 10 mg PO DAILY [facility] Last Admin: 02/27/17 09:59 Dose: 10 mg Magnesium Hydroxide (Milk Of Magnesia) 30 ml PO DAILY PRN PRN Reason: Constipation Last Admin: 02/26/17 13:36 Dose: 30 ml Metformin HCl (Glucophage) 1,000 mg PO BID [facility] Last Admin: 02/27/17 09:59 Dose: 1,000 mg Ondansetron HCl (Zofran Inj) 4 mg IVP Q6H PRN PRN Reason: Nausea/Vomiting Polyethylene Glycol (Miralax) 17 gm PO DAILY [facility] Last Admin: 02/27/17 10:00 Dose: 17 gm - Labs Labs: 02/26/17 05:00 02/26/17 05:00 PT 11.3 SECONDS (9.4-12.5) 02/25/17 22:43 INR 1.04 (0.93-1.08) 02/25/17 22:43 APTT 29.0 Seconds (25.1-36.5) 02/25/17 22:43 - Constitutional Appears: Well, Non-toxic, No Acute Distress - Head Exam Head Exam: ATRAUMATIC, NORMAL INSPECTION, NORMOCEPHALIC - Eye Exam Eye Exam: EOMI, Normal appearance, PERRL Pupil Exam: NORMAL ACCOMODATION - ENT Exam ENT Exam: Mucous Membranes Moist, Normal Exam - Neck Exam Neck Exam: Normal Inspection - Respiratory Exam Respiratory Exam: Clear to Ausculation Bilateral, NORMAL BREATHING PATTERN. absent: Rales, Rhonchi, Wheezes - Cardiovascular Exam Cardiovascular Exam: RRR, +S1, +S2. absent: Gallop, Rubs, Murmur - GI/Abdominal Exam GI & Abdominal Exam: Soft, Normal Bowel Sounds. absent: Distended, Tenderness - Extremities Exam Additional comments: L anterior jamison ulcer with surrounding erythema - Back Exam Back Exam: NORMAL INSPECTION - Neurological Exam Neurological Exam: Alert, Awake, Oriented x3 - Psychiatric Exam Psychiatric exam: Normal Affect, Normal Mood - Skin Skin Exam: Dry, Normal Color, Warm Assessment and Plan - Assessment and Plan (Free Text) Assessment: 72 year old male PMH MD 4 years ago, CAD, HTN, uncontrolled DM2, and TB (post- treatment with confirmed negative cultures in 2012) presents with complaints of chest pain and LLE pain secondary to an open wound. Plan: 1. Chest pain r/o ACS vs bronchitis - Troponin I negative x2 - EKG was unremarkable - Echo showed EF 55%, mild concentric LVH - ASA 81mg po daily - Cardiology consulted, rec ASA 81, Lipitor 10, Zestril 10, Lovenox 40mg SC 2. LLE ulcer - non healing wound likely secondary to uncontrolled DM - Podiatry consulted, recs appreciated - daily wound care provided by podiatry team - bacitracin ointment daily 3. Hemoptysis, resolved - pt has not had episode of hemoptysis since he's been in the hospital, and subjective history is unclear - patient has hx of treated TB (post 1yr of treatments) and confirmed negative cultures in 2012 - cont airborne isolation until at least 1 culture is negative (which will take likely 24 more hours) - ID consult, suggest that TB is unlikely, and more likely pharyngitis - cont Levaquin d2 4. Hx of uncontrolled DM2 - likely 2/2 poor compliance with medication - A1C 12.4 - Metformin 1000mg BID (home dose that pt states that he takes) - [facility] was contacted ([phone] ext [phone]) and confirmed that last time prescriptions were filled was in 2014 and were Metformin 1000mg BID, Glipizide 5mg daily, Lisinopril 10mg daily, and Amlodipine 10mg daily - ISS - Accucheck ACHS 5. Hypertension, improved - cont Lisinopril 10mg po daily - cont to monitor 6. HLD - cont Lipitor 10mg 7. Urinary complaints likely due to BPH - patient complaining of urinary hesitancy, dribbling - Urine and Blood cultures negative - will start flomax 8. Chronic constipation - Miralax daily, Milk of Mag PRN - Zofran 4mg ivp q6 prn nausea Pepcid/Lovenox HHD Patient was seen, examined and discussed with attending, Dr. Teagan Austin PGY1 <Gaviota Candelaria - Last Filed: 02/27/17 16:59> Objective - Vital Signs/Intake and Output Vital Signs (last 24 hours): Temp Pulse Resp BP Pulse Ox 99.2 F 83 20 138/81 98 02/27/17 06:00 02/27/17 10:00 02/27/17 06:00 02/27/17 09:59 02/27/17 06:00 - Medications Medications: Current Medications Acetaminophen (Tylenol 325mg Tab) 650 mg PO Q6H PRN PRN Reason: Headache Aspirin (Aspirin Chewable) 81 mg PO DAILY [facility] Last Admin: 02/27/17 09:58 Dose: 81 mg Atorvastatin Calcium (Lipitor) 10 mg PO DIN [facility] Last Admin: 02/26/17 17:17 Dose: 10 mg Bacitracin (Bacitracin) 0 gm TOP DAILY [facility] Docusate Sodium (Colace) 100 mg PO BID [facility] Last Admin: 02/27/17 09:59 Dose: 100 mg Enoxaparin Sodium (Lovenox) 40 mg SC DAILY [facility] PRN Reason: Protocol Last Admin: 02/27/17 10:00 Dose: 40 mg Famotidine (Pepcid) 20 mg PO 1000,2200 [facility] Last Admin: 02/27/17 09:58 Dose: 20 mg Levofloxacin/Dextrose (Levaquin 500mg) 500 mg in 100 mls @ 100 mls/hr IVPB DAILY [facility] Last Admin: 02/27/17 09:59 Dose: 100 mls/hr Insulin Human Lispro (Humalog Low) 0 units SC ACHS [facility] PRN Reason: Protocol Last Admin: 02/27/17 12:56 Dose: 2 units Lisinopril (Zestril) 10 mg PO DAILY [facility] Last Admin: 02/27/17 09:59 Dose: 10 mg Magnesium Hydroxide (Milk Of Magnesia) 30 ml PO DAILY PRN PRN Reason: Constipation Last Admin: 02/26/17 13:36 Dose: 30 ml Metformin HCl (Glucophage) 1,000 mg PO BID [facility] Last Admin: 02/27/17 09:59 Dose: 1,000 mg Ondansetron HCl (Zofran Inj) 4 mg IVP Q6H PRN PRN Reason: Nausea/Vomiting Polyethylene Glycol (Miralax) 17 gm PO DAILY [facility] Last Admin: 02/27/17 10:00 Dose: 17 gm - Labs Labs: PT 11.3 SECONDS (9.4-12.5) 02/25/17 22:43 INR 1.04 (0.93-1.08) 02/25/17 22:43 APTT 29.0 Seconds (25.1-36.5) 02/25/17 22:43 Attending/Attestation - Attestation I have personally seen and examined this patient.: Yes I have fully participated in the care of the patient.: Yes I have reviewed all pertinent clinical information, including history, physical exam and plan: Yes Notes (Text): 02/27/17 16:57 Attending note; Patient seen and examined with resident. Patient is a 72-year-old male admitted with chest discomfort and mild hemoptysis. Patient with a past medical history of diabetes, tuberculosis treated last year , noncompliance with follow-up. Cardiac enzymes negative. Echocardiogram normal. Cardiology evaluation appreciated. AFB 1 ordered since the patient complained of hemoptysis 1. Currently no episodes. Hemoglobin is stable. Mostly secondary to bronchitis. ID evaluation appreciated. We will discontinue isolation once AFB is negative. Continue levofloxacin. Diabetes; hemoglobin A1c is 12. Noncompliance with follow-up. Started on metformin. The diagnosis and treatment options discussed with patient's son in detail. Possible discharge home tomorrow if AFB negative. Upon discharge the patient will follow-up with [facility] clinic.
--- NOTE | 2017-02-27 15:11 | PN ---
DATE: 02/27/2017 SUBJECTIVE: A 72-year-old male seen at bedside for continued evaluation and management of a chronic diabetic left anterior lower leg ulcer. The patient denies any pain and has been afebrile. OBJECTIVE: VITAL SIGNS: Revealed temperature of 99.2, pulse rate of 74, blood pressure of 138/81, and respiratory rate of 20. EXTREMITIES: Palpable pedal pulses noted bilaterally. Temporally filling time is within normal limits bilaterally. There is noted to be +2 nonpitting lower extremity edema noted bilaterally. There is a full-thickness ulceration on the left anterior lower leg that measures approximately 1.5 x 1.0 x 0.2 cm. The base of the ulcer is primarily fibrotic with no granulation tissue present. There is no purulence. There is no foul odor. The wound does not probe to tendon or bone. There is no purulence to suggest underlying abscess formation. Protective sensation diminished using 5.07 g monofilament wire testing bilaterally. LABORATORY DATA: Reveals white count of 8.8, hemoglobin of 13.9, hematocrit of 39.8, and platelet count 291. Microbiology report of the left leg reveals gram negative rods. ASSESSMENT: Full-thickness chronic nonhealing anterior left lower leg ulceration secondary to long-standing diabetes. PLAN: The patient was seen and evaluated. The wound was cleansed with normal sterile saline. We will apply Bactroban and a dry sterile dressing daily. Dr. Alvarez's note was read and appreciated. We will continue with IV antibiotics as per infectious disease. The patient will be seen and followed daily. Darryl Bourne DPM
--- NOTE | 2017-02-27 17:46 | CP.PCM.PN ---
Subjective - Date & Time of Evaluation Date of Evaluation: 02/27/17 Time of Evaluation: 15:30 - Subjective Subjective: Infectious Disease Follow Up: February 27, 2017 72 yo male with history of tuberculosis over 5 years ago who had treatment initiated at [facility] at that time. He was followed through by the [facility]. Patient himself is a very poor historian. Notes reviewed at [facility] verifying initiation of treatment in February 2011. The patient was initially brought to [facility] for chest pain and LLE pain. Patient feeling much better now. Objective - Vital Signs/Intake and Output Vital Signs (last 24 hours): Temp Pulse Resp BP Pulse Ox 99.2 F 83 20 138/81 98 02/27/17 06:00 02/27/17 10:00 02/27/17 06:00 02/27/17 09:59 02/27/17 06:00 - Medications Medications: Current Medications Acetaminophen (Tylenol 325mg Tab) 650 mg PO Q6H PRN PRN Reason: Headache Aspirin (Aspirin Chewable) 81 mg PO DAILY [facility] Last Admin: 02/27/17 09:58 Dose: 81 mg Atorvastatin Calcium (Lipitor) 10 mg PO DIN [facility] Last Admin: 02/26/17 17:17 Dose: 10 mg Bacitracin (Bacitracin) 0 gm TOP DAILY [facility] Docusate Sodium (Colace) 100 mg PO BID [facility] Last Admin: 02/27/17 09:59 Dose: 100 mg Enoxaparin Sodium (Lovenox) 40 mg SC DAILY [facility] PRN Reason: Protocol Last Admin: 02/27/17 10:00 Dose: 40 mg Famotidine (Pepcid) 20 mg PO 1000,2200 [facility] Last Admin: 02/27/17 09:58 Dose: 20 mg Levofloxacin/Dextrose (Levaquin 500mg) 500 mg in 100 mls @ 100 mls/hr IVPB DAILY [facility] Last Admin: 02/27/17 09:59 Dose: 100 mls/hr Insulin Human Lispro (Humalog Low) 0 units SC ACHS [facility] PRN Reason: Protocol Last Admin: 02/27/17 12:56 Dose: 2 units Lisinopril (Zestril) 10 mg PO DAILY [facility] Last Admin: 02/27/17 09:59 Dose: 10 mg Magnesium Hydroxide (Milk Of Magnesia) 30 ml PO DAILY PRN PRN Reason: Constipation Last Admin: 02/26/17 13:36 Dose: 30 ml Metformin HCl (Glucophage) 1,000 mg PO BID [facility] Last Admin: 02/27/17 09:59 Dose: 1,000 mg Ondansetron HCl (Zofran Inj) 4 mg IVP Q6H PRN PRN Reason: Nausea/Vomiting Polyethylene Glycol (Miralax) 17 gm PO DAILY [facility] Last Admin: 02/27/17 17:02 Dose: Not Given - Labs Labs: PT 11.3 SECONDS (9.4-12.5) 02/25/17 22:43 INR 1.04 (0.93-1.08) 02/25/17 22:43 APTT 29.0 Seconds (25.1-36.5) 02/25/17 22:43 - Constitutional Appears: Non-toxic, No Acute Distress, Chronically Ill - Head Exam Head Exam: ATRAUMATIC, NORMOCEPHALIC - Eye Exam Eye Exam: EOMI, PERRL Pupil Exam: NORMAL ACCOMODATION, PERRL - ENT Exam ENT Exam: Mucous Membranes Moist, Normal External Ear Exam, TM's Normal Bilaterally - Neck Exam Neck Exam: Full ROM, Normal Inspection - Respiratory Exam Respiratory Exam: Clear to Ausculation Bilateral, NORMAL BREATHING PATTERN. absent: Rales, Rhonchi, Wheezes - Cardiovascular Exam Cardiovascular Exam: REGULAR RHYTHM, RRR, +S1, +S2 - GI/Abdominal Exam GI & Abdominal Exam: Soft, Normal Bowel Sounds. absent: Distended, Tenderness - Extremities Exam Additional comments: Chronic venous stasis of the legs bilaterally. Anterior left leg ulceration with fibrosis. - Neurological Exam Neurological Exam: Alert, CN II-XII Intact, Oriented x3 - Psychiatric Exam Psychiatric exam: Normal Affect, Normal Mood - Skin Skin Exam: Intact, Normal Color Assessment and Plan - Assessment and Plan (Free Text) Assessment: 72 yo male with history of active TB who completed treatment about 5 years ago. The patient has a non-healing left leg ulceration with sign of chronic venous stasis. Noted that the patient is on Levaquin for antibiotic treatment. No need for further TB treatment at this time. Noted hemoptysis was part of the presenting complaints. Chest X-ray did not show infiltrate. Obtain sputum cultures. No need for Quantiferon or PPD as the patient has a known history of active TB with treatment. Local wound care as per podiatry. More likely Pharyngitis. Await sputum cultures. Can check for Acid-Fast stains of the sputum to r/o out TB but unlikely diagnosis. One acid-fast stain is negative so far. Thank you for allowing me to participate in the care of the patient, we will follow with you.
[2017-02-27 17:51] VITALS: BP 152/62; PULSE 76; RESP 18; TEMP 98.8; O2SAT 99
--- NOTE | 2017-02-27 19:32 | CP.PCM.DIS ---
<Mikey Austin - Last Filed: 02/27/17 19:18> Provider - Provider Date of Admission: 02/27/17 13:47 Attending physician: Gaviota Candelaria MD Time Spent in preparation of Discharge (in minutes): 45 Hospital Course - Lab Results Lab Results: Most Recent Lab Values WBC 8.8 10^3/ul (4.5-11.0) 02/26/17 05:00 RBC 4.51 10^6/uL (3.5-6.1) 02/26/17 05:00 Hgb 13.9 g/dL (14.0-18.0) L 02/26/17 05:00 Hct 39.8 % (42.0-52.0) L 02/26/17 05:00 MCV 88.2 fl (80.0-105.0) 02/26/17 05:00 MCH 30.8 pg (25.0-35.0) 02/26/17 05:00 MCHC 34.9 g/dl (31.0-37.0) 02/26/17 05:00 RDW 13.0 % (11.5-14.5) 02/26/17 05:00 Plt Count 291 10^3/uL (120.0-450.0) 02/26/17 05:00 MPV 9.9 fl (7.0-11.0) 02/26/17 05:00 Gran % 54.1 % (50.0-68.0) 02/26/17 05:00 Lymph % (Auto) 35.6 % (22.0-35.0) H 02/26/17 05:00 [place] % (Auto) 8.5 % (1.0-6.0) H 02/26/17 05:00 Eos % (Auto) 1.5 % (1.5-5.0) 02/26/17 05:00 Baso % (Auto) 0.3 % (0.0-3.0) 02/26/17 05:00 Gran # 4.77 (1.4-6.5) 02/26/17 05:00 Lymph # 3.1 (1.2-3.4) 02/26/17 05:00 [place] # 0.8 (0.1-0.6) H 02/26/17 05:00 Eos # 0.1 (0.0-0.7) 02/26/17 05:00 Baso # 0.03 K/mm3 (0.0-2.0) 02/26/17 05:00 PT 11.3 SECONDS (9.4-12.5) 02/25/17 22:43 INR 1.04 (0.93-1.08) 02/25/17 22:43 APTT 29.0 Seconds (25.1-36.5) 02/25/17 22:43 Sodium 137 mmol/L (132-148) 02/26/17 05:00 Potassium 4.2 mmol/L (3.6-5.0) 02/26/17 05:00 Chloride 101 mmol/L (98-107) 02/26/17 05:00 Carbon Dioxide 30 mmol/L (21-33) 02/26/17 05:00 Anion Gap 10 (10-20) 02/26/17 05:00 BUN 26 mg/dL (7-21) H 02/26/17 05:00 Creatinine 1.0 mg/dl (0.8-1.5) 02/26/17 05:00 Est GFR ( Amer) > 60 02/26/17 05:00 Est GFR (Non-Af Amer) > 60 02/26/17 05:00 POC Glucose (mg/dL) 236 mg/dL (65-110) H 02/27/17 16:31 Random Glucose 194 mg/dL (70-110) H 02/26/17 05:00 Hemoglobin A1c 12.4 % (4.2-6.5) H 02/26/17 05:00 Calcium 9.4 mg/dL (8.4-10.5) 02/26/17 05:00 Phosphorus 4.0 mg/dL (2.5-4.5) 02/26/17 05:00 Magnesium 1.8 mg/dL (1.7-2.2) 02/26/17 05:00 Total Bilirubin 0.7 mg/dL (0.2-1.3) 02/26/17 05:00 AST 21 U/L (17-59) 02/26/17 05:00 ALT 30 U/L (7-56) 02/26/17 05:00 Alkaline Phosphatase 98 U/L (38-126) 02/26/17 05:00 Lactate Dehydrogenase 513 U/L (333-699) 02/25/17 22:43 Total Creatine Kinase 157 U/L (35-230) 02/25/17 22:43 Troponin I 0.05 ng/mL D 02/26/17 05:00 NT-Pro-B Natriuret Pep 459 pg/mL (0-450) H 02/25/17 22:43 Total Protein 7.0 g/dL (5.8-8.3) 02/26/17 05:00 Albumin 3.7 g/dL (3.0-4.8) 02/26/17 05:00 Globulin 3.2 gm/dL 02/26/17 05:00 Albumin/Globulin Ratio 1.2 (1.1-1.8) 02/26/17 05:00 Triglycerides 219 mg/dL (35-160) H 02/26/17 05:00 Cholesterol 208 mg/dL (130-200) H 02/26/17 05:00 LDL Cholesterol Direct 119 mg/dL (0-129) 02/26/17 05:00 HDL Cholesterol 32 mg/dL (29-60) 02/26/17 05:00 Prostate Specific Ag 9.1 ng/mL (0.00-2.5) H 02/26/17 05:00 Thyroxine (T4) 7.6 ug/dL (5.5-11.0) 02/26/17 05:00 TSH 3rd Generation 2.39 mIU/mL (0.46-4.68) 02/26/17 05:00 Urine Color Yellow (YELLOW) 02/26/17 06:24 Urine Appearance Clear (CLEAR) 02/26/17 06:24 Urine pH 5.5 (4.7-8.0) 02/26/17 06:24 Ur Specific [place] 1.025 (1.005-1.035) 02/26/17 06:24 Urine Protein 100 mg/dL (<30 mg/dL) H 02/26/17 06:24 Urine Glucose (UA) 250 mg/dL (NEGATIVE) H 02/26/17 06:24 Urine Ketones Negative mg/dL (NEGATIVE) 02/26/17 06:24 Urine Blood Trace-intact (NEGATIVE) H 02/26/17 06:24 Urine Nitrate Negative (NEGATIVE) 02/26/17 06:24 Urine Bilirubin Negative (NEGATIVE) 02/26/17 06:24 Urine Urobilinogen 0.2 E.U./dL (<1 E.U./dL) 02/26/17 06:24 Ur Leukocyte Esterase Negative Bal[place]inder/uL (NEGATIVE) 02/26/17 06:24 Urine RBC 0 - 2 /hpf (0-2) 02/26/17 06:24 Urine WBC 0 - 2 /hpf (0-6) 02/26/17 06:24 Ur Epithelial Cells 0 - 2 /hpf (0-5) 02/26/17 06:24 Hyaline Casts 0 - 2 /hpf 02/26/17 06:24 - Hospital Course Hospital Course: Mr. Fernandez is a 72 year old male PMHx MT 4 years ago, CAD, HTN, uncontrolled DM2, medication non-compliance and TB (post-treatment with confirmed negative cultures in 2012) presents with complaints of chest pain and LLE pain secondary to an open wound on anterior jamison (ulcer 1cm diameter). Patient reports chest pain began 25-30minutes prior to arrival to ED. He reported the pain was a 10/10 in intensity non radiating to his jaw and arms bilaterally. Patient also complains of SOB with walking but when asked how many feet he was unable to quantify exactly. He denied any cough at this time but reported that for some months now he has been experiencing hemoptysis once a week; it is important to note that the patient is [place] speaking only, is a poor historian w/ different stories told to different MDs, and did not have any episodes of hemoptysis during hospital stay or that was verified by family members. Patient denied any night sweats or weight lossMarcie Red (patient's son was contacted at [phone]) and he stated that pt had MT >10 yrs ago and TB around 5 years ago but was treated [place] [facility] and was followed up at [facility] chest clinic ([address], ) in [place]. Per son, the pt fell 4 months ago and that was when he got the ulcer. Pt currently lives in son's basement. Sis from [facility] was contacted at the above number and provided this information: patient presented w/ hemoptysis in 2010, sputum culture showed +TB, pt was provided with treatment and followup cultures were negative (11/2012). Treatment with Rifampin, INH, Pyrazinamide and Ethambutol were started @ [facility] on 03/12/2011 and continued as outpatient in April 2011. Pyrazinamide and Ethambutol were discontinued in the end of April 2011 and Rifampin and INH were continued until 12/09/2011. Confirmatory cultures were negative x3 in 11/2012. Patient was transferred to remote telemetry for monitoring. Patient was placed on airborne precautions. ID and podiatry were consulted. Sputum cultures were sent, and first Acid-fast stain was negative for TB. wound care was provided by podiatry. pt remained afebrile and with no leukocytosis, transaminitis, A1c was 12.4. [facility] was contacted ([phone]) and confirmed that last time prescriptions were filled was in 2014 and were Metformin 1000mg BID, Glipizide 5mg daily, Lisinopril 10mg daily, and Amlodipine 10mg daily. It is unclear if patient was taking any of these medications and the son was not sure as well. Patient is prescribed ASA, Lipitor , Lisinopril, Metformin, Levaquin and Bacitracin ointment and encouraged to call wound care clinic and [facility] clinic to set up appointments. Instructions were all explained to the patient in full detail in his [place] tongue. Patient feeling much better, and is not offering any complaints on morning of discharge. - Date & Time of H&P Date of H&P: 02/26/17 Time of H&P: 01:30 Discharge Exam - Head Exam Head Exam: ATRAUMATIC, NORMOCEPHALIC - Eye Exam Eye Exam: EOMI, Normal appearance, PERRL Pupil Exam: NORMAL ACCOMODATION - ENT Exam ENT Exam: Mucous Membranes Moist - Neck Exam Neck exam: Normal Inspection - Respiratory Exam Respiratory Exam: Clear to PA & Lateral, NORMAL BREATHING PATTERN. absent: Rales, Rhonchi, Wheezes, Respiratory Distress - Cardiovascular Exam Cardiovascular Exam: RRR, +S1, +S2. absent: Gallop, JVD, Rubs, Systolic Murmur - GI/Abdominal Exam GI & Abdominal Exam: Normal Bowel Sounds, Soft. absent: Distended, Tenderness - Extremities Exam Extremities exam: full ROM, pedal pulses present Additional comments: 1cm ulcer on anterior jamison of LLE (mild erythema) no pedal edema pedal pulses 2+ - Back Exam Back exam: NORMAL INSPECTION - Neurological Exam Neurological exam: Alert, Normal Gait - Psychiatric Exam Psychiatric exam: Normal Affect, Normal Mood - Skin Skin Exam: Normal Color, Warm Discharge Plan - Discharge Medications Prescriptions: Bacitracin Ointment [Bacitracin] 1 applic TOP DAILY 30 Days tube - Follow Up Plan Condition: STABLE Disposition: HOME/ ROUTINE Instructions: Chest Pain (DC), Diabetes Mellitus Type 2 in Adults (DC), Acute Wound Care (DC), Diabetes and Your Skin (DC) Additional Instructions: - please call [phone] to make an appointment with Dr. Ley for your leg ulcer (opened Thursday, Thursday, Thursday) - please call [phone] to make an appointment at [facility] clinic for diabetic management - please take your medications as prescribed and do not skip days: Levaquin daily for 7 days Metformin twice daily Aspirin daily Lipitor daily Zestril daily Lovenox subcutaneous daily apply Bacitracin on your leg wound daily - if you experience shortness of breath, chest pain or numbness in your legs, please return to ER for evaluation Referrals: [facility] at [facility] [Outside] WOUND CARE CENTER [facility] [Outside] - 2 Week (Please call and make an appointment with Dr. Ley) <Gaviota Candelaria - Last Filed: 02/28/17 16:50> Provider - Provider Date of Admission: 02/27/17 13:47 Attending physician: Gaviota Candelaria MD Hospital Course - Lab Results Lab Results: Most Recent Lab Values WBC 8.8 10^3/ul (4.5-11.0) 02/26/17 05:00 RBC 4.51 10^6/uL (3.5-6.1) 02/26/17 05:00 Hgb 13.9 g/dL (14.0-18.0) L 02/26/17 05:00 Hct 39.8 % (42.0-52.0) L 02/26/17 05:00 MCV 88.2 fl (80.0-105.0) 02/26/17 05:00 MCH 30.8 pg (25.0-35.0) 02/26/17 05:00 MCHC 34.9 g/dl (31.0-37.0) 02/26/17 05:00 RDW 13.0 % (11.5-14.5) 02/26/17 05:00 Plt Count 291 10^3/uL (120.0-450.0) 02/26/17 05:00 MPV 9.9 fl (7.0-11.0) 02/26/17 05:00 Gran % 54.1 % (50.0-68.0) 02/26/17 05:00 Lymph % (Auto) 35.6 % (22.0-35.0) H 02/26/17 05:00 [place] % (Auto) 8.5 % (1.0-6.0) H 02/26/17 05:00 Eos % (Auto) 1.5 % (1.5-5.0) 02/26/17 05:00 Baso % (Auto) 0.3 % (0.0-3.0) 02/26/17 05:00 Gran # 4.77 (1.4-6.5) 02/26/17 05:00 Lymph # 3.1 (1.2-3.4) 02/26/17 05:00 [place] # 0.8 (0.1-0.6) H 02/26/17 05:00 Eos # 0.1 (0.0-0.7) 02/26/17 05:00 Baso # 0.03 K/mm3 (0.0-2.0) 02/26/17 05:00 PT 11.3 SECONDS (9.4-12.5) 02/25/17 22:43 INR 1.04 (0.93-1.08) 02/25/17 22:43 APTT 29.0 Seconds (25.1-36.5) 02/25/17 22:43 Sodium 137 mmol/L (132-148) 02/26/17 05:00 Potassium 4.2 mmol/L (3.6-5.0) 02/26/17 05:00 Chloride 101 mmol/L (98-107) 02/26/17 05:00 Carbon Dioxide 30 mmol/L (21-33) 02/26/17 05:00 Anion Gap 10 (10-20) 02/26/17 05:00 BUN 26 mg/dL (7-21) H 02/26/17 05:00 Creatinine 1.0 mg/dl (0.8-1.5) 02/26/17 05:00 Est GFR ( Amer) > 60 02/26/17 05:00 Est GFR (Non-Af Amer) > 60 02/26/17 05:00 POC Glucose (mg/dL) 236 mg/dL (65-110) H 02/27/17 16:31 Random Glucose 194 mg/dL (70-110) H 02/26/17 05:00 Hemoglobin A1c 12.4 % (4.2-6.5) H 02/26/17 05:00 Calcium 9.4 mg/dL (8.4-10.5) 02/26/17 05:00 Phosphorus 4.0 mg/dL (2.5-4.5) 02/26/17 05:00 Magnesium 1.8 mg/dL (1.7-2.2) 02/26/17 05:00 Total Bilirubin 0.7 mg/dL (0.2-1.3) 02/26/17 05:00 AST 21 U/L (17-59) 02/26/17 05:00 ALT 30 U/L (7-56) 02/26/17 05:00 Alkaline Phosphatase 98 U/L (38-126) 02/26/17 05:00 Lactate Dehydrogenase 513 U/L (333-699) 02/25/17 22:43 Total Creatine Kinase 157 U/L (35-230) 02/25/17 22:43 Troponin I 0.05 ng/mL D 02/26/17 05:00 NT-Pro-B Natriuret Pep 459 pg/mL (0-450) H 02/25/17 22:43 Total Protein 7.0 g/dL (5.8-8.3) 02/26/17 05:00 Albumin 3.7 g/dL (3.0-4.8) 02/26/17 05:00 Globulin 3.2 gm/dL 02/26/17 05:00 Albumin/Globulin Ratio 1.2 (1.1-1.8) 02/26/17 05:00 Triglycerides 219 mg/dL (35-160) H 02/26/17 05:00 Cholesterol 208 mg/dL (130-200) H 02/26/17 05:00 LDL Cholesterol Direct 119 mg/dL (0-129) 02/26/17 05:00 HDL Cholesterol 32 mg/dL (29-60) 02/26/17 05:00 Prostate Specific Ag 9.1 ng/mL (0.00-2.5) H 02/26/17 05:00 Thyroxine (T4) 7.6 ug/dL (5.5-11.0) 02/26/17 05:00 TSH 3rd Generation 2.39 mIU/mL (0.46-4.68) 02/26/17 05:00 Urine Color Yellow (YELLOW) 02/26/17 06:24 Urine Appearance Clear (CLEAR) 02/26/17 06:24 Urine pH 5.5 (4.7-8.0) 02/26/17 06:24 Ur Specific [place] 1.025 (1.005-1.035) 02/26/17 06:24 Urine Protein 100 mg/dL (<30 mg/dL) H 02/26/17 06:24 Urine Glucose (UA) 250 mg/dL (NEGATIVE) H 02/26/17 06:24 Urine Ketones Negative mg/dL (NEGATIVE) 02/26/17 06:24 Urine Blood Trace-intact (NEGATIVE) H 02/26/17 06:24 Urine Nitrate Negative (NEGATIVE) 02/26/17 06:24 Urine Bilirubin Negative (NEGATIVE) 02/26/17 06:24 Urine Urobilinogen 0.2 E.U./dL (<1 E.U./dL) 02/26/17 06:24 Ur Leukocyte Esterase Negative [place]/uL (NEGATIVE) 02/26/17 06:24 Urine RBC 0 - 2 /hpf (0-2) 02/26/17 06:24 Urine WBC 0 - 2 /hpf (0-6) 02/26/17 06:24 Ur Epithelial Cells 0 - 2 /hpf (0-5) 02/26/17 06:24 Hyaline Casts 0 - 2 /hpf 02/26/17 06:24 Attending/Attestation - Attestation I have personally seen and examined this patient.: Yes I have fully participated in the care of the patient.: Yes I have reviewed all pertinent clinical information, including history, physical exam and plan: Yes Notes (Text): 02/28/17 16:50 Attending note; Patient seen and examined with resident. Patient is a 72-year-old male admitted with chest discomfort and mild hemoptysis. Patient with a past medical history of diabetes, tuberculosis treated last year , noncompliance with follow-up. Cardiac enzymes negative. Echocardiogram normal. Cardiology evaluation appreciated. AFB 1 ordered since the patient complained of hemoptysis 1. Currently no episodes. Hemoglobin is stable. Mostly secondary to bronchitis. ID evaluation appreciated. AFB is negative. Continue levofloxacin. Diabetes; hemoglobin A1c is 12. Noncompliance with follow-up. Started on metformin. The diagnosis and treatment options discussed with patient's son in detail. Upon discharge the patient will follow-up with [facility] clinic. Diagnosis; Diabetes Left leg wound Noncompliance with follow-up Bronchitis
[2017-02-28] MEDS ORDERED: Bacitracin Ointment 30 GM TUBE TOP SCH (10:00)
== END 2017-02-27 20:05 | disposition home or self-care (01) | DRG 96 ==
LOC: ED 22:00 → ERH 02-26 00:55 → 3RSO 02-26 03:05 → 3RNO 02-26 04:39 → OBSVTOIN 02-27 13:47 → UNDODISIN 02-27 18:35
PROVIDERS: ADMIT Internal Medicine; ATTEND Internal Medicine
PROC: 0HBRXZZ Excision of Toe Nail, External Approach (ICD-10-PCS; principal; 2017-02-26)
DX: J40 Bronchitis, not specified as acute or chronic (principal); E11.622 Type 2 diabetes mellitus with other skin ulcer; L97.829 Non-pressure chronic ulcer of other part of left lower leg with unspecified severity; I11.0 Hypertensive heart disease with heart failure; E11.65 Type 2 diabetes mellitus with hyperglycemia; I50.9 Heart failure, unspecified; R04.2 Hemoptysis; J02.9 Acute pharyngitis, unspecified; I25.10 Atherosclerotic heart disease of native coronary artery without angina pectoris; N40.1 Benign prostatic hyperplasia with lower urinary tract symptoms; R39.11 Hesitancy of micturition; E78.5 Hyperlipidemia, unspecified; K59.09 Other constipation; I87.8 Other specified disorders of veins; Z86.11 Personal history of tuberculosis; Z91.19 Patient's noncompliance with other medical treatment and regimen; I25.2 Old myocardial infarction; Z87.891 Personal history of nicotine dependence; Z79.84 Long term (current) use of oral hypoglycemic drugs; Z98.41 Cataract extraction status, right eye; Z98.42 Cataract extraction status, left eye

== ENCOUNTER 2017-12-18 18:31 | Emergency (ER) | payer OTHER ==
[2017-12-18 18:32] VITALS: BMI 31.9
[2017-12-18 19:00] VITALS: BP 164/80; PULSE 99; RESP 17; TEMP 98.7; O2SAT 96
--- NOTE | 2017-12-18 19:33 | ED PDOC ---
Arrival/HPI - General Chief Complaint: Lower Extremity Problem/Injury Time Seen by Provider: 12/18/17 19:03 Historian: Patient - History of Present Illness Associated Symptoms (Text): 72yo male, history of diabetes, comes to ER complaining that his right 2nd toenail is partially hanging off which he noticed today. Patient states he noted some blood as well; he denies any active bleeding, trauma or injury to the site. Patient also denies any fever, chills, discharge, redness or swelling to the area. No weakness, numbness, or pain to the site. PMD clinic Past Medical History - Provider Review Nursing Documentation Reviewed: Yes - Cardiac Hx Cardiac Disorders: Yes Hx Hypertension: Yes - Pulmonary Hx Respiratory Disorders: Yes Hx Tuberculosis: Yes - Neurological Hx Neurological Disorder: No - HEENT Hx HEENT Disorder: Yes Hx Cataracts: Yes - Renal Hx Renal Disorder: No - Endocrine/Metabolic Hx Endocrine Disorders: Yes Hx Diabetes Mellitus Type 2: Yes - Hematological/Oncological Hx Blood Disorders: No - Integumentary Hx Dermatological Disorder: No - Musculoskeletal/Rheumatological Hx Musculoskeletal Disorders: Yes Hx Falls: Yes - Gastrointestinal Hx Gastrointestinal Disorders: No - Genitourinary/Gynecological Hx Genitourinary Disorders: No - Psychiatric Hx Psychophysiologic Disorder: No Hx Substance Use: No - Surgical History Hx Cataract Extraction: Yes - Anesthesia Hx Anesthesia: Yes Hx Anesthesia Reactions: No Hx Malignant Hyperthermia: No Family/Social History - Physician Review Nursing Documentation Reviewed: Yes Family/Social History: No Known Family HX Smoking Status: Former Smoker Hx Alcohol Use: No Hx Substance Use: No Allergies/Home Meds Allergies/Adverse Reactions: Allergies No Known Allergies Allergy (Verified 12/18/17 18:54) Review of Systems - Physician Review All systems were reviewed & negative as marked: Yes - Review of Systems Constitutional: absent: Fevers Musculoskeletal: Other (right 2nd toenail partially avulsed with dried blood) Skin: absent: Rash Physical Exam Vital Signs Temp Pulse Resp BP Pulse Ox 12/18/17 18:56 98.7 F 99 H 17 164/80 H 96 Temperature: Afebrile Blood Pressure: Normal Pulse: Regular Respiratory Rate: Normal Appearance: Positive for: Well-Appearing, Non-Toxic, Comfortable Pain Distress: None Mental Status: Positive for: Alert and Oriented X 3 - Systems Exam Upper Extremity: Present: Normal Inspection, Normal ROM Lower Extremity: Present: NORMAL PULSES, Normal ROM, Neurovascularly Intact, Capillary Refill < 2 s, Other (right geat toenail noted to be yellow. right 2nd toenail is yellow partially avulsed; + dried blood noted; no active bleeding, erythema, or discharge noted.). No: Edema, Tenderness, Swelling, Temperature Abnormalties Neurological: Present: GCS=15, CN II-XII Intact, Speech Normal, Motor Func Grossly Intact, Normal Sensory Function Skin: Present: Warm, Dry, Normal Color. No: Rashes Psychiatric: Present: Alert, Oriented x 3, Normal Insight, Normal Concentration Medical Decision Making ED Course and Treatment: Impression: Right 2nd toenail partial avulsion Plan: -- Patient states he has never followed up with a psychology associate before. Discussed with patient that he will need outpatient follow up for treatment of toenail fungus. - PA / NET FISHER / Resident Statement MD/DO has reviewed & agrees with the documentation as recorded. - Scribe Statement The provider has reviewed the documentation as recorded by the Belén Naranjo Provider Scribe Attestation: All medical record entries made by the Belén were at my direction and personally dictated by me. I have reviewed the chart and agree that the record accurately reflects my personal performance of the history, physical exam, medical decision making, and the department course for this patient. I have also personally directed, reviewed, and agree with the discharge instructions and disposition. Disposition/Present on Arrival - Present on Arrival Any Indicators Present on Arrival: No History of DVT/PE: No History of Uncontrolled Diabetes: No Urinary Catheter: No History of Decub. Ulcer: No History Surgical Site Infection Following: None - Disposition Have Diagnosis and Disposition been Completed?: Yes Diagnosis: Toenail fungus, Nail avulsion, toe Disposition: HOME/ ROUTINE Disposition Time: 19:30 Patient Plan: Discharge Condition: STABLE Discharge Instructions (ExitCare): Fungal Nail Infections Print Language: LAO Additional Instructions: Thank you for letting us take care of you today. You were treated for toe nail fungus, partial nail avulsion. The emergency medical care you received today was directed at your acute symptoms. Return to the Emergency Department if your symptoms worsen, do not improve, or if you have any other problems. Please contact call one of the physicians/clinics you have been referred to that are listed on the Patient Visit Information form that is included in your discharge packet. Bring any paperwork you were given at discharge with you along with any medications you are taking to your follow up visit. Our treatment cannot replace ongoing medical care by a primary care provider (PCP) outside of the emergency department. Thank you for allowing the [facility] team to be part of your care today. Referrals: Podiatry Clinic [Outside] - Follow up with primary Lydia Monzon MD [Primary Care Provider] - Follow up with primary Forms: [employer] (Mohawk), [employer] (Pakistani), SCHOOL NOTE
== END 2017-12-18 20:00 | disposition home or self-care (01) ==
LOC: ED 18:31
DX: B35.1 Tinea unguium (principal); S91.204A Unspecified open wound of right lesser toe(s) with damage to nail, initial encounter; X58.XXXA Exposure to other specified factors, initial encounter; E11.9 Type 2 diabetes mellitus without complications; I10 Essential (primary) hypertension